=== PATIENT | male | born 1975 ===

== ENCOUNTER 2020-01-23 08:57 | Emergency (ER) | payer OTHER ==
--- NOTE | 2020-01-23 09:23 | EDM.PDOC ---
ED [facility] GENERAL MEDICAL PROBLEM - General Chief Complaint: Lower Extremity Injury/Pain Stated Complaint: LEGS ARE WEAK Time Seen by Provider: 01/23/20 09:05 Source of Information: Reports: Patient History Limitations: Reports: No Limitations - History of Present Illness INITIAL COMMENTS - FREE TEXT/NARRATIVE: This 44 yo male patient reports to the ED with bilateral lower extremity weakness and intermittent right sided chest pain. The patient reports his lower extremity weakness started this morning. The patient reports he has also had intermittent chest pains that started this morning. The patient reports his chest pains are only on the right sided and feel like "muscle" pain. The patient reports he is not on any medications and has no past medical history. The patient reports he feels chilled, but denies any history of fevers. The patient denies any cough, cold, nausea, vomiting, diarrhea or abdominal pain. The patient reports he works in [id number] normally in the office, but did not expand on that. Onset: Today Duration: Constant Location: Reports: Generalized Quality: Reports: Other Severity: Moderate Improves with: Reports: None Worsens with: Reports: None Context: Reports: Other Associated Symptoms: Reports: Chest Pain (intermittent right sided ) - Related Data Allergies Allergy/AdvReac Type Severity Reaction Status Date / Time No Known Allergies Allergy Verified 01/23/20 09:19 Home Meds: Home Meds . [No Known Home Meds] 01/23/20 [History] Review of Systems - Review of Systems Review Of Systems: Comprehensive ROS is negative, except as noted in HPI. ED EXAM, GENERAL - Physical Exam Exam: See Below Exam Limited By: No Limitations General Appearance: Alert, WD/WN, Moderate Distress Eye Exam: Bilateral Eye: EOMI, Normal Inspection, PERRL Ears: Normal External Exam, Normal Canal, Hearing Grossly Normal, Normal TMs Nose: Normal Inspection, Normal Mucosa, No Blood Throat/Mouth: Normal Inspection, Normal Lips, Normal Teeth, Normal Gums, Normal Oropharynx, Normal Voice, No Airway Compromise Head: Atraumatic, Normocephalic Neck: Normal Inspection, Supple, Non-Tender, Full Range of Motion Respiratory/Chest: No Respiratory Distress, Lungs Clear, Normal Breath Sounds, No Accessory Muscle Use, Chest Non-Tender Cardiovascular: Normal Peripheral Pulses, Regular Rate, Rhythm, No Edema, No Gallop, No JVD, No Murmur, No Rub GI/Abdominal: Normal Bowel Sounds, Soft, Non-Tender, No Organomegaly, No Distention, No Abnormal Bruit, No Mass (Male) Exam: Deferred Rectal (Males) Exam: Deferred Back Exam: Normal Inspection, Full Range of Motion, NT Extremities: Normal Inspection, Normal Range of Motion, Non-Tender, No Pedal Edema, Normal Capillary Refill Neurological: Alert, Oriented, CN II-XII Intact, Normal Cognition, Normal Gait, Normal Reflexes, No Motor/Sensory Deficits Psychiatric: Normal Affect, Normal Mood Skin Exam: Warm, Dry, Intact, Normal Color, No Rash Lymphatic: No Adenopathy Course - Vital Signs Last Recorded V/S: Last Vital Signs Temp 36.2 C 01/23/20 09:19 Pulse 100 01/23/20 09:19 Resp 20 01/23/20 09:19 BP 152/83 H 01/23/20 09:19 Pulse Ox 99 01/23/20 09:19 - Orders/Labs/Meds Orders: Active Orders 24 hr Category Date Time Status EKG Documentation Completion [RC] URGENT Care 01/23/20 09:09 Ordered CBC WITH AUTO DIFF [HEME] Urgent Lab 01/23/20 09:09 Ordered MANUAL DIFFERENTIAL QA/NC [HEME] Urgent Lab 01/23/20 09:20 Results UA RFX GILBERTO AND CULT IF INDIC [URIN] Urgent Lab 01/23/20 09:09 Ordered Isolation [COMM] Routine Oth 01/23/20 09:17 Ordered Labs: Laboratory Tests 01/23/20 01/23/20 01/23/20 Range/Units 09:20 09:20 09:20 WBC 4.9 L (5.0-10.0) 10^3/uL RBC 5.10 (4.6-6.2) 10^6/uL Hgb 15.6 (14.0-18.0) g/dL Hct 45.5 (40.0-54.0) % MCV 89.2 (80-100) fL MCH 30.6 (27.0-34.0) pg MCHC 34.3 (33.0-35.0) g/dL Plt Count 165 (150-450) 10^3/uL Neut % (Auto) 25.8 L (42.2-75.2) % Lymph % (Auto) 63.2 H (20.5-50.1) % Mchenry % (Auto) 10.4 H (2-8) % Eos % (Auto) 0.4 L (1.0-3.0) % Baso % (Auto) 0.2 (0.0-1.0) % Add Manual Diff Yes D-Dimer, Quantitative 171 (0-400) ng/mL Sodium 141 (136-145) mmol/L Potassium 3.4 L (3.5-5.1) mmol/L Chloride 102 (98-107) mmol/L Carbon Dioxide 25 (21-32) mmol/L Anion Gap 17.4 H (7-13) mEq/L BUN 9 (7-18) mg/dL Creatinine 1.04 (0.70-1.30) mg/dL Est Cr Clr Drug Dosing 98.55 mL/min Estimated GFR (MDRD) > 60 BUN/Creatinine Ratio 8.7 (No establ ref range) Glucose 121 H (74-99) mg/dL Calcium 8.3 L (8.5-10.1) mg/dL Total Bilirubin 0.4 (0.2-1.0) mg/dL AST 25 (15-37) U/L ALT 20 (16-63) U/L Alkaline Phosphatase 40 L (46-116) U/L Troponin I < 0.017 (0.000-0.056) ng/mL Total Protein 8.0 (6.4-8.2) g/dL Albumin 4.1 (3.4-5.0) g/dL Globulin 3.9 Albumin/Globulin Ratio 1.1 Departure - Departure Time of Disposition: 10:07 Disposition: Home, Self-Care 01 Condition: Fair Clinical Impression: Viral illness - Discharge Information *PRESCRIPTION DRUG MONITORING PROGRAM REVIEWED*: Not Applicable *COPY OF PRESCRIPTION DRUG MONITORING REPORT IN PATIENT NICHOLAS: Not Applicable Instructions: Viral Illness, Adult Forms: ED Department Discharge Care Plan Goals: The patient was advised of the examination, lab, EKG and x-ray results during the visit. The patient was encouraged to increase his oral fluid intake. The patient may take Tylenol or ibuprofen as directed for temporary symptom relief. If the patient has any additional symptoms or concerns, the patient should either return to the emergency department or visit his primary care facility. Sepsis Event Note - Focused Exam Vital Signs: Vital Signs Temp Pulse Resp BP Pulse Ox 01/23/20 09:19 36.2 C 100 20 152/83 H 99 Date Exam was Performed: 01/23/20 Time Exam was Performed: 10:07 - My Orders Last 24 Hours: My Active Orders 01/23/20 09:09 EKG Documentation Completion [RC] URGENT CBC WITH AUTO DIFF [HEME] Urgent UA RFX GILBERTO AND CULT IF INDIC [URIN] Urgent 01/23/20 09:17 Isolation [COMM] Routine 01/23/20 09:20 MANUAL DIFFERENTIAL QA/NC [HEME] Urgent - Assessment/Plan Last 24 Hours: My Active Orders 01/23/20 09:09 EKG Documentation Completion [RC] URGENT CBC WITH AUTO DIFF [HEME] Urgent UA RFX GILBERTO AND CULT IF INDIC [URIN] Urgent 01/23/20 09:17 Isolation [COMM] Routine 01/23/20 09:20 MANUAL DIFFERENTIAL QA/NC [HEME] Urgent
[2020-01-23 09:49] LABS: ANION GAP 17.4 mEq/L (7-13); CHLORIDE,CL 102 mmol/L (98-107); SODIUM,NA 141 mmol/L (136-145)
== END 2020-01-23 10:20 | disposition home or self-care (01) ==
LOC: DL.ED 08:57
DX: B34.9 Viral infection, unspecified (principal)
CPT/HCPCS: 36415; 71045; 80053; 84484; 85025; 85379; 87804; 93005; 99285-25